=== PATIENT | female | born 1980 | race African-American/Black ===

== ENCOUNTER 2017-01-12 18:59 | Emergency (ER) | payer OTHER ==
[~2017-01-12] VITALS: Ht 170.2 cm; Wt 77.1 kg
[~2017-01-12 18:59] MED LIST: ACET-787 PO; METR250T2 PO
[2017-01-12 19:08] VITALS: BP 112/71
--- NOTE | 2017-01-12 19:57 | NUR ---
PT TAKEN TO BED 8
--- NOTE | 2017-01-12 20:01 | NUR ---
Dr. Stinson evaluating patient at bedside.
--- NOTE | 2017-01-12 20:15 | NUR ---
36Y/F PT. PRESENTS TO ED WITH C/O VAGINAL PAIN AND DISCHARGE. PT. WAS TREAT FOR UTI X 1 WK. NO MEDICAL HX. AAO X4, AMBULATORY WITH STEADY GAIT. RESPIRATIONS ROOM AIR, EVEN AND UNLABORED. VSS, C/O PAIN 08/05. ER MD MADE AWARE OF PT. STATUS.
--- NOTE | 2017-01-12 20:30 | NUR ---
Female Causticiser accompanied female patient for Pelvic Exam FOR DR BRANDON.
[2017-01-12 20:36] LABS: APPEARANCE,URINE HAZY (CLEAR); BILIRUBIN,URINE NEGATIVE (NEGATIVE); BLOOD, URINE TRACE-I (NEGATIVE); COLOR,URINE YELLOW (YELLOW); LEUKOCYTE ESTERASE ,URINE 1+ (NEGATIVE); NITRITE, URINE NEGATIVE (NEGATIVE); UGLUCOSE NEGATIVE (NEGATIVE)
[2017-01-12 20:41] LABS: RBC,URINE 0-5 (RARE) /HPF (0-5); WBC,URINE 6-15 (FEW) /HPF (0-5)
--- NOTE | 2017-01-12 20:45 | NUR ---
Patient discharged with v/s stable. Written and verbal after care instructions given and explained. Patient alert, oriented and verbalized understanding of instructions. Ambulatory with steady gait. All questions addressed prior to discharge. ID band removed. Patient advised to follow up with PMD. Rx of NAPROSYN 500 MG, MONISTAT 1 TRIPLE ACTION SYSTEM given. Patient educated on indication of medication including possible reaction and side effects. Opportunity to ask questions provided and answered.
[2017-01-12 21:00] VITALS: BP 116/80
--- NOTE | 2017-01-12 21:01 | NUR ---
Note undone in EDM - 01/12/17 at 2103 by [facility] 36Y/F PT. PRESENTS TO ED WITH C/O VAGINAL PAIN AND DISCHARGE. PT. WAS TREAT FOR UTI X 1 WK. NO MEDICAL HX. AAO X4, AMBULATORY WITH STEADY GAIT. RESPIRATIONS ROOM AIR, EVEN AND UNLABORED. VSS, C/O PAIN 08/05. ER MADE AWARE OF PT. STATUS.
[2017-01-14 06:46] LABS: CHLAMYDIA TRACHOMATIS AMP DNA Negative (Negative)
== END 2017-01-12 20:45 | disposition home or self-care (01) ==
LOC: MED 18:59
DX: B37.3 Candidiasis of vulva and vagina (principal); Z88.1 Allergy status to other antibiotic agents; Z88.5 Allergy status to narcotic agent; Z79.899 Other long term (current) drug therapy; Z90.49 Acquired absence of other specified parts of digestive tract
CPT/HCPCS: 36415; 81001; 81025; 87086; 87210; 87491; 99284

== ENCOUNTER 2018-10-27 11:36 | Emergency (ER) | payer OTHER ==
[~2018-10-27] VITALS: Ht 170.2 cm; Wt 83.9 kg
[2018-10-27 11:38] VITALS: BP 123/77
--- NOTE | 2018-10-27 11:43 | NUR ---
PT AMB TO BED 8 WITH STEADY GAIT
--- NOTE | 2018-10-27 11:55 | NUR ---
BIB SELF. AAO X4 C/O STOMACH CRAMPING PAIN, NAUSEA, DIARRHEA, AND FREQUENT URINATION SINCE YESTERDAY. PAIN 01/05. DENIES DYSURIA OR LOWER BACK PAIN. PATIENT STATES HER MENSTRUAL CYCLE STARTED 10/26/18. TOOK TYLENOL THIS AM FOR PAIN AT APPROX 0500 AND TOOK MIDOL AT 0600 WITH NO RELIEF. PT STATES HEAVY FLOW ON MENSTRUATION WITH 2 PADS/HR. PT STATES DIZZINESS, DENIES FEVER. HOB UP BEDSIDE SIDE RAILS UP X1. ON LOW BED POSITION, LOCKED. ER TO EVALUATE PT.
[2018-10-27] MEDS ORDERED: KETOROLAC 60 MG/2 ML VIAL IM ONE (12:10)
[2018-10-27] MEDS ORDERED: ONDANSETRON 4 MG ODT PO ONE (13:05)
[2018-10-27 13:25] VITALS: BP 125/70
--- NOTE | 2018-10-27 13:25 | NUR ---
Patient discharged with v/s stable. Written and verbal after care instructions given and explained. Patient alert, oriented and verbalized understanding of instructions. Ambulatory with steady gait. All questions addressed prior to discharge. ID band removed. Patient advised to follow up with PMD. Rx of [place] 5mg-325mg, Cipro 500mg, Zofran 8mg, Provera 10mg, Motrin 800mg given. Patient educated on indication of medication including possible reaction and side effects. Opportunity to ask questions provided and answered.
== END 2018-10-27 13:25 | disposition home or self-care (01) ==
LOC: MED 11:36
DX: N39.0 Urinary tract infection, site not specified (principal); N93.8 Other specified abnormal uterine and vaginal bleeding; Z90.49 Acquired absence of other specified parts of digestive tract; Z98.890 Other specified postprocedural states; Z79.899 Other long term (current) drug therapy; Z88.1 Allergy status to other antibiotic agents; Z88.5 Allergy status to narcotic agent
CPT/HCPCS: 81002; 81025; 96372; 99283; J1885; Q0162

== ENCOUNTER 2020-03-13 17:09 | Emergency (ER) | payer OTHER ==
[~2020-03-13] VITALS: Ht 170.2 cm; Wt 83.1 kg
[~2020-03-13 17:09] MED LIST changes: -ACET-787 PO; +HYDR-5191 PO; +METR-520 PO; -METR250T2 PO
[2020-03-13 18:40] VITALS: BP 132/79
--- NOTE | 2020-03-13 18:43 | NUR ---
TO LOBBY A/W BED AMBULATORY
--- NOTE | 2020-03-13 19:25 | NUR ---
Patient discharged with v/s stable. Written and verbal after care instructions given and explained. Patient alert, oriented and verbalized understanding of instructions. Ambulatory with steady gait. All questions addressed prior to discharge. ID band removed. Patient advised to follow up with PMD. Rx of naprosyn, and ofloxacin given. Patient educated on indication of medication including possible reaction and side effects. Opportunity to ask questions provided and answered.
== END 2020-03-13 19:21 | disposition home or self-care (01) ==
LOC: MED 17:09
DX: H60.91 Unspecified otitis externa, right ear (principal); Z88.1 Allergy status to other antibiotic agents; Z88.5 Allergy status to narcotic agent; Z79.899 Other long term (current) drug therapy
CPT/HCPCS: 99283